=== PATIENT | female | born 2000 | race Caucasian/White ===

== ENCOUNTER 2022-03-23 16:30 | Emergency (ER) | payer BC, SELFPAY ==
[2022-03-23 16:45] VITALS: BP 129/92; PULSE 88; RESP 18; TEMP 36.6; O2SAT 100; BMI 43.3
--- NOTE | 2022-03-23 17:25 | CRLHL7_ITS ---
For Patients: As a result of the Cures Act, medical imaging exams and procedure reports are released immediately into your electronic medical record. You may view this report before your referring provider. If you have questions, please contact your health care provider. INDICATION: Headaches. TECHNIQUE: CT head without contrast. COMPARISON: None. FINDINGS: Cerebral parenchyma: No evidence of acute territorial infarct. No acute intraparenchymal hemorrhage. No significant mass effect/midline shift. Normal bhatia-white matter differentiation. Extra-axial spaces: No extra-axial collection or hemorrhage. Ventricles: Unremarkable. Calvarium: Intact. Visualized paranasal sinuses/mastoid air cells: Grossly clear. Posterior fossa: No cerebellar tonsillar herniation. Visualized orbits: Unremarkable. IMPRESSION: No acute intracranial abnormality. Please note that all CT scans at this facility use dose modulation, iterative reconstruction, and/or weight-based dosing when appropriate to reduce radiation dose to as low as reasonably achievable. Dictated by Nico Meneses MD @ 03/23/2022 8:07:16 PM (Electronically Signed)
--- NOTE | 2022-03-23 17:41 | ED_ITS ---
HPI - General Adult General Chief complaint: Headache/Migraine Stated complaint: Potential water retention in back of head Time Seen by Provider: 03/23/22 16:46 History of Present Illness HPI narrative: Patient is a 22-year-old white female from [facility] who was seen by eye doctor and then sent to the ER today for headache. She has had a history of idiopathic intracranial hypertension. This manifested a few years ago and she has been on the CT is all might since. She has seen Neurology for this. This was idiopathic and not due to any illness or disease process. They attributed some of it to her weight as her BMI is quite elevated. She has noticed a bit of a headache that starts in her neck radiates over the top of her head consistent with a tension-type headache also little bit of fullness in her ear on the right. She reports these are vaguely similar symptoms to that she had when she had increased intracranial pressure. We have CT scan available now and not MRI so CT scan without contrast will be obtained. Encouraging leave the patient's eye exam today was normal with no bulging of the optic nerve. Patient has had no fever chills cough chest pain breathing problem neurologic complaint upper lower extremities Related Data Allergies Allergy/AdvReac Type Severity Reaction Status Date / Time No Known Drug Allergies Allergy Verified 03/23/22 16:45 Review of Systems Status of ROS: Reports: 6 or more systems reviewed and unremarkable except as noted in History and below PFSH [facility] Social History Smoking Status: Never smoker Do you use any of these nicotine containing products: None Second hand tobacco smoke exposure: No How often do you have a drink containing alcohol: never How often do you have six or more drinks on one occasion: Never AUDIT-C Alcohol total score: 0 Non-prescribed substance use: denies use service: No Exam Narrative: Exam Narrative: Objective vital signs unremarkable Alert orient x3 No distress HEENT unremarkable no facial asymmetry pupils equal react to light Neck is supple Neurologic upper extremities unremarkable Const: Vital Signs, click to edit/add: Vital Signs - 24 hr 03/23/22 16:45 Temperature 97.8 F Pulse Rate [Pulse Oximeter] 88 Respiratory Rate 18 Blood Pressure [Ri ght Upper Arm] 129/92 H Pulse Oximetry 100 Oxygen Delivery Me thod Room Air Course Vital Signs Vital signs: Initial Vital Signs Temperature 97.8 F 03/23/22 16:45 Temperature Source Temporal Artery Scan 03/23/22 16:45 Pulse Rate 88 03/23/22 16:45 Pulse Rhythm 03/23/22 16:45 Respiratory Rate 18 03/23/22 16:45 Blood Pressure 129/92 H 03/23/22 16:45 Blood Pressure Mean 104 03/23/22 16:45 Blood Pressure Position Sitting 03/23/22 16:45 Pulse Oximetry 100 03/23/22 16:45 Oxygen Delivery Method 03/23/22 16:45 Vital Signs Temperature 97.8 F 03/23/22 16:45 Pulse Rate 88 03/23/22 16:45 Respiratory Rate 18 03/23/22 16:45 Blood Pressure 129/92 H 03/23/22 16:45 Pulse Oximetry 100 03/23/22 16:45 Oxygen Delivery Method 03/23/22 16:45 Temperature 97.8 F 03/23/22 16:45 Pulse Rate 88 03/23/22 16:45 Respiratory Rate 18 03/23/22 16:45 Blood Pressure 129/92 H 03/23/22 16:45 Pulse Oximetry 100 03/23/22 16:45 Oxygen Delivery Method 03/23/22 16:45 Medical Decision Making MDM Narrative Medical decision making narrative: 22 year white female with history of idiopathic intracranial hypertension, on SCDs all my id. The patient has a history of allergies as well. She is on medications for that as well as meds for asthma. At this point I think it be reasonable to do a CT scan of her head, lab studies, IV fluid, IV Toradol Reglan Benadryl. Hopefully this will resolve her headache hopefully her CT scan look reassuring. She can consult with her neurologist subsequent to that and decide whether they want to pursue MRI scanning at some point as well. Addendum: The patient's CT of the head looks unremarkable for any change, no increased intracranial pressure noted or midline shift. Patient's lab studies look reassuring, her headache is better significantly. Recommend rest observation light activity update her neurologist as needed. Return to ED as needed. Lab Data Labs: Lab Results 03/23/22 03/23/22 03/23/22 Range/Units 17:49 17:49 17:49 WBC 7.33 (4.50-11.00) K/uL RBC 5.32 H (4.00-5.20) m/uL Hgb 16.6 H (12.0-16.0) gm/dL Hct 50.0 (33.0-51.0) % MCV 94 (80-100) fL MCH 31 (26-34) pg MCHC 33 (32-36) gm/dL RDW Coeff of Jewels 11.7 (11.5-15.5) % Plt Count 264 (140-440) K/uL Neut % (Auto) 57.7 (42.0-72.0) % Lymph % (Auto) 32.5 (20-44) % [place] % (Auto) 4.6 (0.0-11.0) % Eos % (Auto) 4.8 (0.0-7.0) % Baso % (Auto) 0.3 (0.0-3.0) % Neut # (Auto) 4.23 (1.7-7.0) K/uL Lymph # (Auto) 2.38 (0.90-2.90) K/uL [place] # (Auto) 0.30 (0.00-0.90) K/UL Eos # (Auto) 0.35 (0.00-0.50) K/uL Baso # (Auto) 0.02 (0.00-0.30) K/uL Sodium 141 (135-149) mmol/L Potassium 4.0 (3.6-5.1) mmol/L Chloride 116 H (96-114) mmol/L Carbon Dioxide 17 L (20-32) mmol/L BUN 9 (5-24) mg/dL Creatinine 0.8 (0.5-1.5) mg/dL Estimated Creat Clear 100.94 Estimated GFR 108 ml/min Glucose 73 (60-115) mg/dL Calcium 9.0 (8.4-10.6) mg/dL Total Bilirubin 0.5 (0.1-1.5) mg/dL Direct Bilirubin 0.4 (0.0-0.5) mg/dL AST 25 (12-35) U/L ALT 17 (4-35) U/L Alkaline Phosphatase 59 (40-150) U/L C-Reactive Protein 0.9 (0.5-1.0) mg/dL Total Protein 7.6 (6.0-8.3) g/dL Albumin 4.4 (3.3-5.0) g/dL HCG, Qual Negative (Negative) Discharge Plan Discharge Clinical Impression: Headache Patient Disposition: Home w/ Parent or Adult Condition: Improved Additional Instructions: Light activity, rest, continue home medications, update their neurologist at her convenience. CT scan looked reassuring today, lab studies were normal. I am glad your headache is better. Rest tonight see how things progress over the next couple of days contact follow-up as needed Activity Level: Light activity Discharge Diet: Regular Stand Alone Forms: [employer] Info Instructions
[2022-03-23] MEDS: diphenhydrAMINE 50 MG/ML inj 25 MG IVP (17:59)
[2022-03-23] MEDS: KETOROLAC 30 MG/ML inj IVP (17:59)
[2022-03-23] MEDS: 0.9 % SODIUM CHLORIDE 1000 ml 1,000 ML 6000 ML IV (18:00)
[2022-03-23 18:18] LABS: Chloride* 116 mmol/L (96-114)
[2022-03-23 18:19] LABS: Albumin* 4.4 g/dL (3.3-5.0); Basophils Absolute Auto 0.02 K/uL (0.00-0.30); Basophils Percent Auto 0.3 % (0.0-3.0); Eosinophils Absolute Auto 0.35 K/uL (0.00-0.50); Eosinophils Percent Auto 4.8 % (0.0-7.0); Hemoglobin* 16.6 gm/dL (12.0-16.0); Immature Granulocytes Abs Auto 0.01 K/uL (0.00-0.30); Immature Granulocytes Pct Auto 0.1 %; Lymphocytes Absolute Auto 2.38 K/uL (0.90-2.90); Lymphocytes Percent Auto 32.5 % (20-44); Mean Corpuscular HGB Conc 33 gm/dL (32-36); Mean Corpuscular Hemoglobin 31 pg (26-34); Mean Corpuscular Volume 94 fL (80-100); Monocytes Percent Auto 4.6 % (0.0-11.0); Neutrophils Absolute Auto 4.23 K/uL (1.7-7.0); Neutrophils Percent Auto 57.7 % (42.0-72.0); Platelet Count* 264 K/uL (140-440); RDW Coefficient of Variation % 11.7 % (11.5-15.5); Red Blood Count 5.32 m/uL (4.00-5.20); Sodium* 141 mmol/L (135-149); White Blood Count* 7.33 K/uL (4.50-11.00)
[2022-03-23 18:21] LABS: Creatinine* 0.8 mg/dL (0.5-1.5); Est. Creatinine Clearance* 100.94; Estimated Glomerular Filt Rate 108 ml/min
[2022-03-23 18:22] LABS: Alanine Aminotransferase* 17 U/L (4-35); Alkaline Phosphatase* 59 U/L (40-150); Aspartate Amino Transferase* 25 U/L (12-35); Bilirubin Direct* 0.4 mg/dL (0.0-0.5); Bilirubin Total* 0.5 mg/dL (0.1-1.5); Blood Urea Nitrogen* 9 mg/dL (5-24); Carbon Dioxide* 17 mmol/L (20-32); Glucose* 73 mg/dL (60-115); Slide Review Reflex No; Total Protein* 7.6 g/dL (6.0-8.3)
[2022-03-23 18:25] LABS: C Reactive Protein* 0.9 mg/dL (0.5-1.0)
[2022-03-23 18:51] LABS: HCG Qualitative Serum* Negative (Negative)
[2022-03-23] MEDS: METOCLOPRAMIDE HCL 10 MG in 0.9 % SODIUM CHLORIDE 100 ml 100 ML 306 MG IVPB (18:54)
[2022-03-23] MEDS: TERBUTALINE 1 MG/ML INJ 0.25 MG SUBCUT (18:55)
== END 2022-03-23 20:21 | disposition home or self-care (01) ==
PROVIDERS: Emergency Provider Family Medicine
DX: R51.9 Headache, unspecified (principal)
CPT/HCPCS: 36415; 70450; 80048; 80076; 84703; 85025; 86140; 94761; 96361; 96374; 96375; 99284; J1200; J1885; J2765; J3105; J7030